=== PATIENT | male | born 1985 | race American Indian/Alaskan Native ===

== ENCOUNTER 2016-11-15 20:22 | Emergency (ER) | payer MEDICAID, OTHER ==
--- NOTE | 2016-11-16 06:05 | EDM.PDOC ---
[id number] Chief Complaint: Behavioral/Psych Stated Complaint: EVAL Time Seen by Provider: 11/15/16 20:59 Source: Reports: Patient, Significant Other History Limitations: Reports: No limitations - History of Present Illness INITIAL COMMENTS - FREE TEXT/NARRATIVE: History of present illness: [31-year-old male is brought in by law enforcement after a call was made regarding abnormal behavior and thinking on his part. He was in his yard thinking that Yumiko was underneath his trailer house and trying to get into his house. He also thought that his was possessed by nella. I spoke with his significant other. They have been together for 7 years and they have 4 children. She states that in the last week or so he is exhibited bizarre behavior and that she had discovered that he had been using amphetamines and bath salts and been drinking alcohol. He had lost his job or been laid off and that precipitated this relapse into use. She had apparently contacted [facility] and was hoping that he could be admitted there at least over the weekend and then have a rule 25 done in [facility] where they live. She is already called and made this arrangement and he apparently is open to this. She also stated that he did express some suicidal ideation in that he stated to her that either I need to get help or I am going to kill myself.] Review of systems: As per history of present illness and below otherwise all systems reviewed and negative. Past medical history: As per history of present illness and as reviewed below otherwise noncontributory. Surgical history: As per history of present illness and as reviewed below otherwise noncontributory. Social history: No reported history of drug or alcohol abuse. Family history: As per history of present illness and as reviewed below otherwise noncontributory. Physical exam: General: Alert and oriented in no acute distress Head: Atraumatic and normocephalic Eyes: PERRL, EOMI Oral: Free of lesions dryness or erythema Neck: Supple and nontender without masses or organomegaly or lymphadenopathy Respiratory: Clear to auscultation and adventitious sounds Cardiovascular: Regular rate and rhythm without murmur GI: Soft and nontender without masses or organomegaly : Deferred Back: Free of pain or stiffness Extremities: Without cyanosis clubbing or edema, free of stiffness or pain Psychiatric: Patient presents as being paranoid with no eye contact and is quick to try to reassure me that everything is okay. In asking about his delusions and Hallucinations he is denying these. he has been given a supper tray and apparently is very hungry and will not stop eating while I try to interview him. Diagnostics: [His white count is slightly elevated, his ALT and AST are also slightly elevated, his urine drug screen is positive for amphetamine and methamphetamine. His EtOH level is less than 3.] Therapeutics: [We did have a spice room worker come in and speak with him and his significant other. Our plan at this point will be for him to go to [facility] in the morning. We are reassured that there should be a bed available but they will not know for sure until 8 or 9:00. They can possibly do the rule 25 but if not then his or significant other will take him to [facility] Thursday to get that done. 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 - Related Data Allergies/ADRs: Allergies No Known Allergies Allergy (Verified 11/15/16 20:29) Home Meds: Home Meds Sertraline [Zoloft] 11/15/16 [History] Past Medical History Cardiovascular History: Reports: Hypertension Psychiatric History: Reports: Addiction, Other (see below) Other Psychiatric History: states takes zoloft to balance his brain Social & Family History - Tobacco Use Smoking Status *Q: Never Smoker Course - Vital Signs Last Recorded V/S: Last Vital Signs Temp 36.3 C 11/16/16 09:11 Pulse 83 11/16/16 09:11 Resp 16 11/16/16 09:11 BP 130/76 11/16/16 09:11 Pulse Ox 97 11/16/16 09:11 - Orders/Labs/Meds Labs: Laboratory Tests 11/15/16 11/15/16 11/15/16 Range/Units 21:27 21:27 21:27 WBC 13.6 H (4.5-11.0) K/uL RBC 5.53 (4.30-5.90) M/uL Hgb 15.9 H (12.0-15.0) g/dL Hct 47.2 (40.0-54.0) % MCV 85 (80-98) fL MCH 29 (27-31) pg MCHC 34 (32-36) % Plt Count 328 (150-400) K/uL Neut % (Auto) 80 H (36-66) % Lymph % (Auto) 13 L (24-44) % [place] % (Auto) 6 (2-6) % Eos % (Auto) 0 L (2-4) % Baso % (Auto) 0 (0-1) % ESR 12 (0-20) mm/hr Sodium 138 L (140-148) mmol/L Potassium 3.7 (3.6-5.2) mmol/L Chloride 100 (100-108) mmol/L Carbon Dioxide 31 (21-32) mmol/L Anion Gap 10.7 (5.0-14.0) mmol/L BUN 17 (7-18) mg/dL Creatinine 1.3 (0.8-1.3) mg/dL Est Cr Clr Drug Dosing 77.68 mL/min Estimated GFR (MDRD) > 60 (>60) Glucose 147 H (74-106) mg/dL Calcium 8.9 (8.5-10.1) mg/dL Total Bilirubin 0.7 (0.2-1.0) mg/dL AST 55 H (15-37) U/L ALT 84 H (12-78) U/L Alkaline Phosphatase 94 (46-116) U/L Total Protein 8.0 (6.4-8.2) g/dL Albumin 3.9 (3.4-5.0) g/dL Globulin 4.1 H (2.3-3.5) g/dL Albumin/Globulin Ratio 1.0 L (1.2-2.2) TSH, Ultra Sensitive 1.124 (0.358-3.740) uIU/mL Urine Color Urine Appearance Urine pH (4.5-8.0) Ur Specific [place] (1.008-1.030) Urine Protein (NEGATIVE) mg/dL Urine Glucose (UA) (NEGATIVE) mg/dL Urine Ketones (NEGATIVE) mg/dL Urine Occult Blood (NEGATIVE) Urine Nitrite (NEGAITVE) Urine Bilirubin (NEGATIVE) Urine Urobilinogen (NORMAL) mg/dL Ur Leukocyte Esterase (NEGATIVE) Urine RBC (0-5) Urine WBC (0-5) Ur Epithelial Cells Amorphous Sediment Urine Bacteria Urine Mucus Salicylates (2.0-20.0) mg/dL Urine Opiates Screen (NEGATIVE) Ur Oxycodone Screen (NEGATIVE) Urine Methadone Screen (NEGATIVE) Ur Propoxyphene Screen (NEGATIVE) Acetaminophen 0.0 L (10.0-30.0) ug/mL Ur Barbiturates Screen (NEGATIVE) Ur Tricyclics Screen (NEGATIVE) Ur Phencyclidine Scrn (NEGATIVE) Ur Amphetamine Screen (NEGATIVE) U Methamphetamines Scrn (NEGATIVE) Urine MDMA Screen (NEGATIVE) U Benzodiazepines Scrn (NEGATIVE) U Cocaine Metab Screen (NEGATIVE) U Marijuana (THC) Screen (NEGATIVE) Ethyl Alcohol mg/dL 11/15/16 11/15/16 11/15/16 Range/Units 21:27 21:27 22:32 WBC (4.5-11.0) K/uL RBC (4.30-5.90) M/uL Hgb (12.0-15.0) g/dL Hct (40.0-54.0) % MCV (80-98) fL MCH (27-31) pg MCHC (32-36) % Plt Count (150-400) K/uL Neut % (Auto) (36-66) % Lymph % (Auto) (24-44) % [place] % (Auto) (2-6) % Eos % (Auto) (2-4) % Baso % (Auto) (0-1) % ESR (0-20) mm/hr Sodium (140-148) mmol/L Potassium (3.6-5.2) mmol/L Chloride (100-108) mmol/L Carbon Dioxide (21-32) mmol/L Anion Gap (5.0-14.0) mmol/L BUN (7-18) mg/dL Creatinine (0.8-1.3) mg/dL Est Cr Clr Drug Dosing mL/min Estimated GFR (MDRD) (>60) Glucose (74-106) mg/dL Calcium (8.5-10.1) mg/dL Total Bilirubin (0.2-1.0) mg/dL AST (15-37) U/L ALT (12-78) U/L Alkaline Phosphatase (46-116) U/L Total Protein (6.4-8.2) g/dL Albumin (3.4-5.0) g/dL Globulin (2.3-3.5) g/dL Albumin/Globulin Ratio (1.2-2.2) TSH, Ultra Sensitive (0.358-3.740) uIU/mL Urine Color Urine Appearance Urine pH (4.5-8.0) Ur Specific [place] (1.008-1.030) Urine Protein (NEGATIVE) mg/dL Urine Glucose (UA) (NEGATIVE) mg/dL Urine Ketones (NEGATIVE) mg/dL Urine Occult Blood (NEGATIVE) Urine Nitrite (NEGAITVE) Urine Bilirubin (NEGATIVE) Urine Urobilinogen (NORMAL) mg/dL Ur Leukocyte Esterase (NEGATIVE) Urine RBC (0-5) Urine WBC (0-5) Ur Epithelial Cells Amorphous Sediment Urine Bacteria Urine Mucus Salicylates < 0.2 L (2.0-20.0) mg/dL Urine Opiates Screen Negative (NEGATIVE) Ur Oxycodone Screen Negative (NEGATIVE) Urine Methadone Screen Negative (NEGATIVE) Ur Propoxyphene Screen Negative (NEGATIVE) Acetaminophen (10.0-30.0) ug/mL Ur Barbiturates Screen Negative (NEGATIVE) Ur Tricyclics Screen Negative (NEGATIVE) Ur Phencyclidine Scrn Negative (NEGATIVE) Ur Amphetamine Screen Positive H (NEGATIVE) U Methamphetamines Scrn Positive H (NEGATIVE) Urine MDMA Screen Negative (NEGATIVE) U Benzodiazepines Scrn Negative (NEGATIVE) U Cocaine Metab Screen Negative (NEGATIVE) U Marijuana (THC) Screen Negative (NEGATIVE) Ethyl Alcohol 3 mg/dL 11/15/16 11/16/16 Range/Units 22:32 08:56 WBC (4.5-11.0) K/uL RBC (4.30-5.90) M/uL Hgb (12.0-15.0) g/dL Hct (40.0-54.0) % MCV (80-98) fL MCH (27-31) pg MCHC (32-36) % Plt Count (150-400) K/uL Neut % (Auto) (36-66) % Lymph % (Auto) (24-44) % [place] % (Auto) (2-6) % Eos % (Auto) (2-4) % Baso % (Auto) (0-1) % ESR (0-20) mm/hr Sodium (140-148) mmol/L Potassium (3.6-5.2) mmol/L Chloride (100-108) mmol/L Carbon Dioxide (21-32) mmol/L Anion Gap (5.0-14.0) mmol/L BUN (7-18) mg/dL Creatinine (0.8-1.3) mg/dL Est Cr Clr Drug Dosing mL/min Estimated GFR (MDRD) (>60) Glucose (74-106) mg/dL Calcium (8.5-10.1) mg/dL Total Bilirubin (0.2-1.0) mg/dL AST (15-37) U/L ALT (12-78) U/L Alkaline Phosphatase (46-116) U/L Total Protein (6.4-8.2) g/dL Albumin (3.4-5.0) g/dL Globulin (2.3-3.5) g/dL Albumin/Globulin Ratio (1.2-2.2) TSH, Ultra Sensitive (0.358-3.740) uIU/mL Urine Color Yellow Urine Appearance Clear Urine pH 6.0 (4.5-8.0) Ur Specific [place] 1.025 (1.008-1.030) Urine Protein Negative (NEGATIVE) mg/dL Urine Glucose (UA) Normal (NEGATIVE) mg/dL Urine Ketones 15 H (NEGATIVE) mg/dL Urine Occult Blood Negative (NEGATIVE) Urine Nitrite Negative (NEGAITVE) Urine Bilirubin Negative (NEGATIVE) Urine Urobilinogen 1 (NORMAL) mg/dL Ur Leukocyte Esterase Negative (NEGATIVE) Urine RBC 0-5 (0-5) Urine WBC 0-5 (0-5) Ur Epithelial Cells Rare Amorphous Sediment Not seen Urine Bacteria Few Urine Mucus Few Salicylates (2.0-20.0) mg/dL Urine Opiates Screen (NEGATIVE) Ur Oxycodone Screen (NEGATIVE) Urine Methadone Screen (NEGATIVE) Ur Propoxyphene Screen (NEGATIVE) Acetaminophen (10.0-30.0) ug/mL Ur Barbiturates Screen (NEGATIVE) Ur Tricyclics Screen (NEGATIVE) Ur Phencyclidine Scrn (NEGATIVE) Ur Amphetamine Screen (NEGATIVE) U Methamphetamines Scrn (NEGATIVE) Urine MDMA Screen (NEGATIVE) U Benzodiazepines Scrn (NEGATIVE) U Cocaine Metab Screen (NEGATIVE) U Marijuana (THC) Screen (NEGATIVE) Ethyl Alcohol < 3 mg/dL Departure - Departure Disposition: DC/Tfer to [facility] Clinical Impression: Chemical dependency, Depression, Delusional disorder Referrals: PCP,None [Primary Care Provider] - Forms: ED Department Discharge Care Plan Goals: transfer to [facility] in [place]. <AlissaAilin - Last Filed: 11/20/16 07:34> ED ROS GENERAL - Review of Systems Review Of Systems: ROS reveals no pertinent complaints other than HPI. - Physical Exam Exam: Not Obtained Course - Re-Assessments/Exams Free Text/Narrative Re-Assessment/Exam: 11/16/16 10:56 Pt was reevaluated and still appears to be delusional even though a repeat etoh showed a level that was very low--30. He stated that his father and brother were found cut up along the road near [place]. According to family both are alive and well. He was able to eat and had no vomiting. He had called the [facility] in [place] and was trying to get in there. There are no beds available for about a month according to the waiting list present. He became acute last nite after drinking. He has been cooperative and following directions ok . 11/16/16 11:08 further discussion was held with the pt and he definitely wants placement. We were able to find a bed at [facility] in [place]. Pt was very accepting of that. Departure - Departure Time of Disposition: 12:23 Condition: fair
[2016-11-16 09:12] VITALS: BP 130/76
== END 2016-11-16 12:30 ==
LOC: JP.ED 20:22
DX: F32.9 Major depressive disorder, single episode, unspecified (principal); F22 Delusional disorders; F19.20 Other psychoactive substance dependence, uncomplicated; I10 Essential (primary) hypertension
CPT/HCPCS: 36415; 70450; 80053; 80305; 81001; 84443; 85025; 85651; 99284; 99285; G0480